=== PATIENT | male | born 1955 | race Caucasian/White ===

== ENCOUNTER 2016-12-26 21:20 | Emergency (ER) | payer OTHER | END 2016-12-26 21:38 | disposition left against medical advice (07) | LOC: ER1 21:20 | DX: Z53.21 Procedure and treatment not carried out due to patient leaving prior to being seen by health care provider (principal) ==

== ENCOUNTER 2020-11-19 09:42 | Observation (INO) | payer MEDICARE ==
[~2020-11-19] VITALS: Ht 177.8 cm; Wt 90.7 kg
[~2020-11-19 09:42] MED LIST: ADMELOG100 UNIT/1 SQ; BASAGLAR K100 UNIT/1 SQ; CLEOCIN HCL300 MG PO; COLCHICINE0.6 M1 PO; DEPAKOTE250 MG PO; ELAVIL 25 MG TA25 MG PO; INDOMETHACIN50 MG PO; ISOSORBIDE MONO30 MG PO; JARDIANCE10 MG PO; LEVAQUIN750 MG PO; LISINOPRIL20 MG PO; METFORMIN HCL500 M1 PO; MOBIC15 MG PO; NEURONTIN300 MG PO; NORCO 10-325 T1 EACH PO; PRAVACHOL20 MG PO; VITAMIN D250000 UNIT PO
[2020-11-19 10:56] LABS: HEMOGLOBIN 14.1 gm/dl (14.0-17.5); RED BLOOD COUNT 4.58 M/UL (4.20-5.50); WHITE BLOOD COUNT 8.4 K/UL (4.5-11.0)
[2020-11-19] MEDS ORDERED: TRULICITY1.5 MG/0.5 SQ (18:44)
[2020-11-19] MEDS ORDERED: GABAPENTIN600 MG PO (18:44)
[2020-11-19] MEDS ORDERED: LISINOPRIL20 MG PO (18:45)
[2020-11-19] MEDS ORDERED: ASPIRIN EC81 MG PO (18:47)
[2020-11-20 04:26] LABS: HEMOGLOBIN 13.6 gm/dl (14.0-17.5); RED BLOOD COUNT 4.52 M/UL (4.20-5.50); WHITE BLOOD COUNT 8.8 K/UL (4.5-11.0)
[2020-11-20 04:50] LABS: BUN/CREATININE RATIO 17 (0-10)
[2020-11-20 22:31] LABS: URINE TOTAL PROTEIN 22 mg/dl
[2020-11-21 04:23] LABS: HEMOGLOBIN 13.4 gm/dl (14.0-17.5); RED BLOOD COUNT 4.34 M/UL (4.20-5.50); WHITE BLOOD COUNT 8.1 K/UL (4.5-11.0)
[2020-11-21 04:57] LABS: BUN/CREATININE RATIO 16 (0-10)
[2020-11-21 08:14] LABS: ANTISTREPTOLYSIN O AB 40.6 IU/mL (0.0-200.0); IMMUNOGLOBULIN A, QN, SERUM 537 mg/dL (61-437); RHEUMATOID ARTHRITIS FACTOR <10.0 IU/mL (0.0-13.9)
[2020-11-21 09:14] LABS: HBSAG SCREEN Negative (Negative); HEP B CORE AB, TOT Negative (Negative); HEP C VIRUS AB <0.1 (0.0-0.9)
[2020-11-21] MEDS ORDERED: AMOX TR-K CLV1 EAC4 PO (10:56)
[2020-11-21] MEDS ORDERED: SANTYL OINT 3030 GM TP (12:08)
[2020-11-21 14:14] LABS: ANTI-DSDNA ANTIBODIES <1 IU/mL (0-9)
[2020-11-22 10:14] LABS: CREATININE, URINE 56.2 mg/dL (Not Estab.)
[2020-11-22 12:14] LABS: COMPLEMENT C3, SERUM 166 mg/dL (82-167); COMPLEMENT C4, SERUM 32 mg/dL (12-38)
== END 2020-11-21 15:05 | disposition home or self-care (01) ==
LOC: ER1 09:42 → CDU 13:56 → M/S 13:56
PROVIDERS: Internal Medicine Nephrology; Physician Assistant; Student in an Organized Health Care Education/Training Program; ADMIT Internal Medicine Infectious Disease
DX: L95.9 Vasculitis limited to the skin, unspecified (principal); N17.9 Acute kidney failure, unspecified; R31.0 Gross hematuria; E11.65 Type 2 diabetes mellitus with hyperglycemia; E11.621 Type 2 diabetes mellitus with foot ulcer; L97.529 Non-pressure chronic ulcer of other part of left foot with unspecified severity; E78.5 Hyperlipidemia, unspecified; N28.9 Disorder of kidney and ureter, unspecified; I10 Essential (primary) hypertension; Z20.822 Contact with and (suspected) exposure to COVID-19; Z79.82 Long term (current) use of aspirin; Z79.4 Long term (current) use of insulin; Z79.899 Other long term (current) drug therapy; Z91.14 Patient's other noncompliance with medication regimen
CPT/HCPCS: 36415; 73620; 80048; 80053; 81001; 82043; 82550; 82553; 82570; 82784; 82962; 83036; 83520; 83605; 83874; 84156; 84484; 85025; 85610; 85652; 85730; 86021; 86038; 86060; 86140; 86160; 86162; 86225; 86431; 86704; 86706; 86708; 86803; 87081; 87340; 87880; 96374; 96376; 99285; G0378; J0295; U0002

== ENCOUNTER 2021-01-10 13:04 | Inpatient (IN) | payer MEDICARE ==
[~2021-01-10] VITALS: Ht 175.3 cm; Wt 92.2 kg
[~2021-01-10 13:04] MED LIST changes: +AMOX TR-K CLV1 EAC4 PO; +ASPIRIN EC81 MG PO; +GABAPENTIN600 MG PO; +SANTYL OINT 3030 GM TP; +TRULICITY1.5 MG/0.5 SQ
[2021-01-10 14:51] LABS: HEMOGLOBIN 14.5 gm/dl (14.0-17.5); RED BLOOD COUNT 4.68 M/UL (4.20-5.50); WHITE BLOOD COUNT 16.1 K/UL (4.5-11.0)
[2021-01-11 04:29] LABS: WHITE BLOOD COUNT 14.3 K/UL (4.5-11.0)
[2021-01-11 04:31] LABS: HEMOGLOBIN 11.7 gm/dl (14.0-17.5); RED BLOOD COUNT 3.85 M/UL (4.20-5.50)
[2021-01-11] MEDS ORDERED: ZESTRIL20 MG PO (09:16)
[2021-01-11] MEDS ORDERED: COLCRYS0.6 MG PO (09:18)
--- NOTE | 2021-01-11 15:29 | NUR ---
Reported to dr. wilson 435 blood sugar and stated will write order
[2021-01-11] MEDS ORDERED: BASAGLAR K100 UNIT/1 SQ (18:46)
[2021-01-11] MEDS ORDERED: NOVOLOG FL100 UNIT/1 SQ (18:47)
[2021-01-12 05:19] LABS: HEMOGLOBIN 12.2 gm/dl (14.0-17.5); WHITE BLOOD COUNT 12.1 K/UL (4.5-11.0)
[2021-01-12 05:44] LABS: BUN/CREATININE RATIO 20 (0-10)
[2021-01-13 04:59] LABS: BUN/CREATININE RATIO 17 (0-10)
[2021-01-14 05:28] LABS: HEMOGLOBIN 11.9 gm/dl (14.0-17.5); RED BLOOD COUNT 3.91 M/UL (4.20-5.50)
[2021-01-14 05:51] LABS: BUN/CREATININE RATIO 19 (0-10)
[2021-01-15] MEDS ORDERED: ZYVOX600 MG PO (09:50)
[2021-01-15] MEDS ORDERED: INVANZ 1 GM VIAL1 GM IV (09:50)
[2021-01-16 05:41] LABS: BUN/CREATININE RATIO 22 (0-10)
== END 2021-01-16 17:00 | disposition home health service (06) | DRG 264 ==
LOC: ER1 13:04 → CDU 17:27 → M/S 17:27
PROVIDERS: Physician Assistant; Physician Assistant Medical; Podiatrist Foot & Ankle Surgery; ADMIT Internal Medicine Infectious Disease
PROC: 0J9Q0ZZ Drainage of Right Foot Subcutaneous Tissue and Fascia, Open Approach (ICD-10-PCS; principal; 2021-01-12 13:39)
PROC: 0JBQ0ZZ Excision of Right Foot Subcutaneous Tissue and Fascia, Open Approach (ICD-10-PCS; principal; 2021-01-12 13:39)
PROC: 0HRMXK3 Replacement of Right Foot Skin with Nonautologous Tissue Substitute, Full Thickness, External Approach (ICD-10-PCS; 2021-01-16)
PROC: 0JBQ0ZZ Excision of Right Foot Subcutaneous Tissue and Fascia, Open Approach (ICD-10-PCS; 2021-01-16)
DX: E11.52 Type 2 diabetes mellitus with diabetic peripheral angiopathy with gangrene (principal); L97.429 Non-pressure chronic ulcer of left heel and midfoot with unspecified severity; L02.612 Cutaneous abscess of left foot; E87.1 Hypo-osmolality and hyponatremia; E87.2 Acidosis; L97.419 Non-pressure chronic ulcer of right heel and midfoot with unspecified severity; N17.9 Acute kidney failure, unspecified; I96 Gangrene, not elsewhere classified; E11.621 Type 2 diabetes mellitus with foot ulcer; Z20.822 Contact with and (suspected) exposure to COVID-19; E78.5 Hyperlipidemia, unspecified; E11.40 Type 2 diabetes mellitus with diabetic neuropathy, unspecified; L97.529 Non-pressure chronic ulcer of other part of left foot with unspecified severity; L97.519 Non-pressure chronic ulcer of other part of right foot with unspecified severity; N18.30 Chronic kidney disease, stage 3 unspecified; I12.9 Hypertensive chronic kidney disease with stage 1 through stage 4 chronic kidney disease, or unspecified chronic kidney disease; E11.22 Type 2 diabetes mellitus with diabetic chronic kidney disease; Z82.49 Family history of ischemic heart disease and other diseases of the circulatory system; Z79.4 Long term (current) use of insulin; Z84.89 Family history of other specified conditions
CPT/HCPCS: 36415; 73630; 73718; 80048; 80053; 80202; 82962; 83605; 83735; 85025; 85027; 85652; 86140; 87040; 87070; 87077; 87186; 87205; 93925; 96374; 96375; 99285; C1751; J1335; J2001; J2405; J2543; J2704; J2795; J3010; J3370; J7030; J7070; J7120; Q4133; U0002

== ENCOUNTER → 2021-09-10 | Outpatient (CLI) | payer MEDICARE ==
[~2021-09-10] MED LIST changes: +COLCRYS0.6 MG PO; +INVANZ 1 GM VIAL1 GM IV; +NOVOLOG FL100 UNIT/1 SQ; +ZESTRIL20 MG PO; +ZYVOX600 MG PO
== END ==
LOC: KOH-I 08-28 13:45
DX: M19.071 Primary osteoarthritis, right ankle and foot (principal); G60.8 Other hereditary and idiopathic neuropathies; G60.0 Hereditary motor and sensory neuropathy; L08.89 Other specified local infections of the skin and subcutaneous tissue; M25.571 Pain in right ankle and joints of right foot; M79.671 Pain in right foot; L02.611 Cutaneous abscess of right foot; S63.591A Other specified sprain of right wrist, initial encounter; R93.6 Abnormal findings on diagnostic imaging of limbs; L03.115 Cellulitis of right lower limb; M76.821 Posterior tibial tendinitis, right leg
CPT/HCPCS: 73721

== ENCOUNTER → 2021-12-18 | Outpatient (CLI) | payer MEDICARE | LOC: LAB 10:16 | DX: Z20.822 Contact with and (suspected) exposure to COVID-19 (principal) | CPT/HCPCS: U0003 ==

== ENCOUNTER → 2022-03-04 | Outpatient (CLI) | payer MEDICARE | LOC: LAB 13:18 | DX: Z20.822 Contact with and (suspected) exposure to COVID-19 (principal) | CPT/HCPCS: U0002 ==

== ENCOUNTER → 2022-03-11 | Outpatient (CLI) | payer MEDICARE | LOC: LAB 09:03 | DX: Z20.822 Contact with and (suspected) exposure to COVID-19 (principal) | CPT/HCPCS: U0002 ==